=== PATIENT | female | born 1955 | race Caucasian/White ===

== ENCOUNTER 2017-05-21 08:14 | Outpatient (CLI) | payer OTHER | END 2017-05-21 08:15 | disposition home or self-care (01) | LOC: BICMAMMO 08:14 | PROVIDERS: ATTEND Family Medicine | DX: Z12.31 Encounter for screening mammogram for malignant neoplasm of breast (principal); Z85.820 Personal history of malignant melanoma of skin | CPT/HCPCS: 77063; 77067 ==

== ENCOUNTER 2018-05-22 11:57 | Outpatient (CLI) | payer OTHER | END 2018-05-22 11:58 | disposition home or self-care (01) | LOC: BICMAMMO 11:57 | PROVIDERS: ATTEND Obstetrics & Gynecology | DX: Z12.31 Encounter for screening mammogram for malignant neoplasm of breast (principal); Z80.3 Family history of malignant neoplasm of breast; Z85.820 Personal history of malignant melanoma of skin | CPT/HCPCS: 77063; 77067 ==

== ENCOUNTER 2019-05-26 13:12 | Outpatient (CLI) | payer MEDICARE, OTHER ==
--- NOTE | 2019-05-26 15:06 | MMO ---
Bilateral MAMMO Bilat Screen [facility]. CLINICAL HISTORY: Patient is 64 years old and is seen for screening. VIEWS: The views performed were: bilateral craniocaudal with tomosynthesis and bilateral mediolateral oblique with tomosynthesis. FILMS COMPARED: The present examination has been compared to prior imaging studies performed at [facility] on 05/17/2016, 05/21/2017 and 05/22/2018, and at [facility] on 05/13/2015. This study has been interpreted with the assistance of computer-aided detection. MAMMOGRAM FINDINGS: There are scattered fibroglandular densities. There are no suspicious masses, suspicious calcifications, or new areas of architectural distortion. IMPRESSION: THERE IS NO MAMMOGRAPHIC EVIDENCE OF MALIGNANCY. A ROUTINE FOLLOW-UP MAMMOGRAM IN 1 YEAR IS RECOMMENDED. THE RESULTS OF THIS EXAM WERE SENT TO THE PATIENT. ACR BI-RADS Category 1 - Negative MAMMOGRAPHY NOTE: 1. A negative mammogram report should not delay a biopsy if a dominant of clinically suspicious mass is present. 2. Approximately 10% to 15% of breast cancers are not detected by mammography. 3. Adenosis and dense breasts may obscure an underlying neoplasm. Reported by: EVANGELISTA FLETCHER MD Electonically Signed: [id number]
--- NOTE | 2019-05-26 15:43 | BD ---
BONE DENSITOMETRY USING DEXA: HISTORY: Postmenopausal screening for osteoporosis. FINDINGS: Lumbar Spine: BMD (g/cm2) L1 0.916 T-Score: -0.7 Z-Score: 0.9 L2 0.910 T-Score: -1.1 Z-Score: 0.7 L3 0.959 T-Score: -1.1 Z-Score: 0.7 L4 0.890 T-Score: -1.6 Z-Score: 0.4 L1-L4 0.918 T-Score: -1.3 Z-Score: 0.6 Femoral Neck: 0.631 T-Score: -2.0 Z-Score: -0.4 Total Femur: 0.817 T-Score: -1.0 Z-Score: 0.2 The 10-year fracture risk for a major osteoporotic fracture is 27% and for a hip fracture is 2.6%. Impression: Osteopenia. POS: OFF
== END 2019-05-26 13:13 | disposition home or self-care (01) ==
LOC: BICMAMMO 13:12
PROVIDERS: ATTEND Obstetrics & Gynecology
DX: Z12.31 Encounter for screening mammogram for malignant neoplasm of breast (principal); Z13.820 Encounter for screening for osteoporosis; M81.0 Age-related osteoporosis without current pathological fracture; M85.89 Other specified disorders of bone density and structure, multiple sites; Z79.890 Hormone replacement therapy
CPT/HCPCS: 77063; 77067; 77080

== ENCOUNTER 2020-05-28 09:25 | Outpatient (CLI) | payer MEDICARE, OTHER ==
--- NOTE | 2020-05-28 10:03 | MMO ---
Bilateral MAMMO Bilat Screen [facility]. CLINICAL HISTORY: Patient is 65 years old and is seen for screening. The patient has the following family history of breast cancer: aunt, malignant (generic) and paternal grandmother, malignant (generic). The patient has a history of melanoma. VIEWS: The views performed were: bilateral craniocaudal with tomosynthesis and bilateral mediolateral oblique with tomosynthesis. FILMS COMPARED: The present examination has been compared to prior imaging studies performed at [facility] on 05/17/2016, 05/21/2017, 05/22/2018 and 05/26/2019. This study has been interpreted with the assistance of computer-aided detection. MAMMOGRAM FINDINGS: There are scattered fibroglandular densities. There are no suspicious masses, suspicious calcifications, or new areas of architectural distortion. IMPRESSION: THERE IS NO MAMMOGRAPHIC EVIDENCE OF MALIGNANCY. A ROUTINE FOLLOW-UP MAMMOGRAM IN 1 YEAR IS RECOMMENDED. THE RESULTS OF THIS EXAM WERE SENT TO THE PATIENT. ACR BI-RADS Category 1 - Negative MAMMOGRAPHY NOTE: 1. A negative mammogram report should not delay a biopsy if a dominant of clinically suspicious mass is present. 2. Approximately 10% to 15% of breast cancers are not detected by mammography. 3. Adenosis and dense breasts may obscure an underlying neoplasm. Reported by: JOHN MADSEN MD Electonically Signed: [id number]
== END 2020-05-28 09:26 | disposition home or self-care (01) ==
LOC: BICMAMMO 09:25
PROVIDERS: ATTEND Obstetrics & Gynecology
DX: Z12.31 Encounter for screening mammogram for malignant neoplasm of breast (principal); Z80.3 Family history of malignant neoplasm of breast
CPT/HCPCS: 77063; 77067

== ENCOUNTER 2021-05-10 15:11 | Outpatient (CLI) | payer MEDICARE, OTHER ==
[2021-05-10 16:53] LABS: Anion Gap 12 mmol/L (10-20); BUN (Urea Nitrogen) 22 mg/dL (9.8-20.1); Calc. Creatinine Clearance 0 mL/min (70-130); Calcium 9.5 mg/dL (7.8-10.44); Carbon Dioxide 29 mmol/L (23-31); Chloride 100 mmol/L (98-107); Glucose 100 mg/dL (80-115); Potassium 4.4 mmol/L (3.5-5.1); Sodium 137 mmol/L (136-145)
[2021-05-10 16:54] LABS: #Eosinphils 0.1 10x3/uL (0.0-0.5); #Monocytes 0.6 10x3/uL (0.0-1.1); #Neutrophils 2.8 10x3/uL (1.5-8.4); %Basophils 0.6 % (0.0-2.0); %Eosinophils 1.5 % (0.0-6.0); %Lymphocytes 26.4 % (18.0-47.0); %Neutrophils 59.3 % (40.0-75.0); Hemoglobin 12.3 g/dL (12.0-15.5); Mean Corpuscular HGB CONC 31.5 g/dL (32.0-36.0); Mean Corpuscular Hemoglobin 29.4 pg (27.0-33.0); Mean Corpuscular Volume 93.3 fl (81.6-98.3); Mean Platelet Volume 10.3 fl (7.4-10.4); Platelet Count 254 10x3/uL (150-450); RBC Distribution Width 14.2 % (11.5-14.5); Red Blood Cell (RBC) Count 4.18 10x6/uL (3.90-5.03); White Blood Cell (WBC) Count 4.7 10x3/uL (3.5-10.5)
[2021-05-11 09:53] LABS: SARS-CoV-2 PCR by NAA Not Detected (NotDetected)
== END 2021-05-10 15:12 | disposition home or self-care (01) ==
LOC: LABBT 15:11
PROVIDERS: ATTEND Orthopaedic Surgery Hand Surgery
DX: Z01.818 Encounter for other preprocedural examination (principal); S62.606A Fracture of unspecified phalanx of right little finger, initial encounter for closed fracture; Z20.822 Contact with and (suspected) exposure to COVID-19
CPT/HCPCS: 80048; 85025; U0003; U0005; 93005; 93010

== ENCOUNTER 2021-05-13 09:28 | Day surgery (SDC) | payer MEDICARE, OTHER ==
[2021-05-10 13:25] VITALS: BMI 20.7
[2021-05-13] MEDS ORDERED: Fentanyl 100 MCG/2 ML VIAL ONE ×2 (12:06→12:16)
[2021-05-13] MEDS ORDERED: Bacitracin Zinc Ointment 30 gm TUBE ONE (12:09)
[2021-05-13] MEDS ORDERED: Bupivacaine PF 0.5% 30 ML VIAL ONE (12:09)
[2021-05-13] MEDS ORDERED: Levofloxacin 500 mg/D5W 100 ml Premix Bag ONE (12:16)
[2021-05-13] MEDS ORDERED: Midazolam HCl 2 mg/2 ml Vial ONE (12:16)
[2021-05-13] MEDS ORDERED: Clindamycin/D5W 900 mg/50 ml Premix Bag ONE (12:16)
[2021-05-13] MEDS ORDERED: PROPOFOL 200 MG/20 ML VIAL ONE (12:35)
[2021-05-13] MEDS ORDERED: Glycopyrrolate 0.2 MG/ML 5 ML SYRINGE ONE (12:35)
[2021-05-13] MEDS ORDERED: Lidocaine 1% PF 5 ML VIAL ONE (12:35)
[2021-05-13] MEDS ORDERED: Ondansetron PF 4 MG/2 ML Vial ONE (12:35)
[2021-05-13] MEDS ORDERED: Ketorolac Tromethamine 30 MG/ML VIAL ONE (12:35)
[2021-05-13] MEDS ORDERED: PHENYLEPHRINE-NS 100 MCG/ML 10 ML SYRINGE ONE (12:35)
[2021-05-13] MEDS ORDERED: Dexamethasone 20 MG/5 ML VIAL ONE (12:35)
[2021-05-13] MEDS ORDERED: Neomycin-Polymyxin 1 ML AMP ONE (12:48)
[2021-05-13] MEDS ORDERED: Phenylephrine 10 MG/ML VIAL ONE (13:05)
== END 2021-05-13 17:16 | disposition home or self-care (01) ==
LOC: SDC 09:28
PROVIDERS: ATTEND Orthopaedic Surgery Hand Surgery
PROC: 0PST04Z Reposition Right Finger Phalanx with Internal Fixation Device, Open Approach (ICD-10-PCS; principal; 2021-05-13)
PROC: 0LM70ZZ Reattachment of Right Hand Tendon, Open Approach (ICD-10-PCS; 2021-05-13)
DX: S62.636A Displaced fracture of distal phalanx of right little finger, initial encounter for closed fracture (principal); M20.011 Mallet finger of right finger(s); M65.331 Trigger finger, right middle finger; M65.332 Trigger finger, left middle finger; E11.9 Type 2 diabetes mellitus without complications; I10 Essential (primary) hypertension; I25.2 Old myocardial infarction; I25.111 Atherosclerotic heart disease of native coronary artery with angina pectoris with documented spasm; Z79.82 Long term (current) use of aspirin; Z79.899 Other long term (current) drug therapy; Z88.0 Allergy status to penicillin; Y29.XXXA Contact with blunt object, undetermined intent, initial encounter
CPT/HCPCS: 26433; 26765; 73140; 76000; C1713; C1894; J1100; J1885; J1956; J2250; J2370; J2405; J2704; J3010; J3490; S0020

== ENCOUNTER 2021-05-30 08:08 | Outpatient (CLI) | payer MEDICARE, OTHER | END 2021-05-30 08:09 | disposition home or self-care (01) | LOC: BICMAMMO 08:08 | PROVIDERS: ATTEND Obstetrics & Gynecology | DX: Z12.31 Encounter for screening mammogram for malignant neoplasm of breast (principal); Z13.820 Encounter for screening for osteoporosis; M81.0 Age-related osteoporosis without current pathological fracture; M85.89 Other specified disorders of bone density and structure, multiple sites; Z80.9 Family history of malignant neoplasm, unspecified; Z85.820 Personal history of malignant melanoma of skin; Z79.890 Hormone replacement therapy | CPT/HCPCS: 77063; 77067; 77080 ==

== ENCOUNTER 2022-05-05 07:39 | Outpatient (CLI) | payer MEDICARE, OTHER | END 2022-05-05 07:40 | disposition home or self-care (01) | LOC: BICULT 07:39 | PROVIDERS: ATTEND Family Medicine | DX: I71.40 Abdominal aortic aneurysm, without rupture, unspecified (principal) | CPT/HCPCS: 76775 ==